=== PATIENT | female | born 1965 | race African-American/Black ===

== ENCOUNTER 2016-09-01 00:12 | Emergency (ER) | payer OTHER ==
[~2016-09-01] VITALS: Ht 175.3 cm; Wt 106.4 kg
[~2016-09-01 00:12] MED LIST: NOHOMEMEDS
[2016-09-01 01:00] VITALS: BP 137/69
[2016-09-01] MEDS ORDERED: ULTRAM50 MG PO (01:07)
== END 2016-09-01 01:14 | disposition home or self-care (01) ==
LOC: EME 00:12
DX: K42.9 Umbilical hernia without obstruction or gangrene (principal); Z88.2 Allergy status to sulfonamides; Z87.828 Personal history of other (healed) physical injury and trauma
CPT/HCPCS: 99281; 99284